=== PATIENT | female | born 1940 | race Caucasian/White ===

== ENCOUNTER 2019-01-07 15:38 | Inpatient (IN) ==
[2019-01-07] MEDS: NS 1,000 ML IV PRN ×2 (16:14→21:20)
[2019-01-07 16:18] LABS: BASO# 0.02 X1000 (0.0-0.2); BASO% 0.3 % (0.0-0.8); EOS# 0.18 X1000 (0.0-0.7); EOS% 2.3 % (0.0-10.0); HEMATOCRIT 39.5 % (37.0-47.0); HEMOGLOBIN 13.5 g/dL (12.0-16.0); LYMPH% 24.5 % (20.5-51.1); MCHC 34.2 g/dL (33-37); MCV 84.8 FL (81-99); MONO# 0.58 X1000 (0.11-0.59); MONO% 7.5 % (1.7-9.3); MPV 9.4 FL (7.4-10.4); NEUT# 5.07 X1000 (1.4-6.5); NEUT% 65.4 % (42.2-75.2); PLT 258 X1000 (130-400); RBC 4.66 XMIL (4.2-5.4); RDW 13.6 % (11.5-14.5); WBC 7.75 X1000 (4.8-10.8)
--- NOTE | 2019-01-07 16:19 | Diag Imaging Result Doc PS360 ---
EXAM: CHEST-PORTABLE - 01/07/2019 HISTORY: stroke like symptoms TECHNIQUE: Portable chest COMPARISON: None. FINDINGS: Heart size appears the upper range of normal. There is some tortuosity of the thoracic aorta. There is mild linear atelectasis or scarring at the left base. Lungs otherwise appear clear. There is no pleural effusion or pneumothorax identified. IMPRESSION: Mild linear atelectasis or scarring at left base. No other evidence of acute disease. Electronically signed by Edward Rolon 01/07/2019 4:16 PM
[2019-01-07 16:37] LABS: INR 1.02; PROTIME 13.5 Seconds (11.0-16.0)
[2019-01-07 16:38] LABS: PTT 34.4 Seconds (22.3-41.8)
[2019-01-07 16:45] LABS: ALB/GLOB RATIO 2.2; ALBUMIN 4.4 g/dL (3.5-5.0); CALCIUM 10.5 mg/dL (8.8-10.2); CREATININE 1.2 mg/dL (0.5-0.9); POTASSIUM 3.5 mmol/L (3.5-5.1); TOTAL BILIRUBIN 0.66 mg/dL (0.20-1.00); TOTAL PROTEIN 6.4 g/dL (6.3-8.3)
[2019-01-07 16:50] LABS: URINE SOURCE CLEAN CATCH
[2019-01-07 16:56] LABS: BILIRUBIN URINE NEGATIVE (NEGATIVE); BLOOD URINE NEGATIVE (NEGATIVE); COLOR YELLOW; GLUCOSE URINE NEGATIVE (NEGATIVE); KETONE URINE NEGATIVE (NEGATIVE); LEUKOCYTES URINE NEGATIVE (NEGATIVE); NITRITE URINE NEGATIVE (NEGATIVE); PROTEIN URINE TRACE mg/dL (NEGATIVE); SP GRAVITY URINE 1.009; TURBIDITY URINE CLEAR (CLEAR); UROBILINOGEN URINE NORMAL (NORMAL)
[2019-01-07 16:57] LABS: UR EPITHELIAL CELLS <10 /HPF (<10); URINE BACTERIA NEGATIVE /HPF; URINE RBC <10 /HPF (<10); URINE WBC <10 /HPF (<10)
[2019-01-07 17:07] LABS: UR AMPHETAMINES QUAL NONE DETECTED (NONE DETECT); UR BARBITUATES QUAL NONE DETECTED (NONE DETECT); UR BENZODIAZEPIN QUAL NONE DETECTED (NONE DETECT); UR CANNABINOIDS QUAL NONE DETECTED (NONE DETECT); UR COCAINE QUAL NONE DETECTED (NONE DETECT); UR METHADONE QUAL NONE DETECTED (NONE DETECT); UR OPIATES QUAL NONE DETECTED (NONE DETECT); UR OXYCODONE QUAL NONE DETECTED (NONE DETECT); UR PCP QUAL NONE DETECTED (NONE DETECT)
--- NOTE | 2019-01-07 18:19 | Diag Imaging Result Doc PS360 ---
EXAM: CT HEAD W/O CONTRAST - 01/07/2019 HISTORY: TIA TECHNIQUE: CT head without contrast COMPARISON: None. FINDINGS: There are mild atrophic changes. There are chronic appearing microvascular ischemic changes. There is no indication of recent infarct, although acute infarcts may not be immediately visible. There is no evidence of intracranial hemorrhage, mass effect, or midline shift. There is no evidence of skull fracture. Visualized portions of paranasal sinuses and mastoid air cells appear clear. IMPRESSION: Mild atrophic changes and chronic microvascular ischemic changes. No visible acute intracranial abnormality. No hemorrhage or mass effect. This exam was performed using automated exposure control, adjustment of mA or kV according to patient size, and/or use of iterative reconstruction technique. Electronically signed by Edward Rolon 01/07/2019 6:17 PM
--- NOTE | 2019-01-07 18:51 | PROVIDER DOCUMENTATION ---
This chart was entered by Jessica Slade Scribe, acting as scribe for Jase Ledbetter MD. HPI-Neurological Disorder - General Chief Complaint: STROKE ALERT Stated Complaint: RETURN/RECHECK SEEN THIS AM Time Seen by Provider: 01/07/19 15:48 Source: patient, family Allergies/Adverse Reactions: Patient Allergies Allergy/AdvReac Type Severity Reaction Status Date / Time Sulfa (Sulfonamide Allergy Severe NAUSEA/VOMI Verified 01/07/19 16:23 Antibiotics) TING [Sulfa(Sulfonamide Antibiotics)] clonidine AdvReac HEADACHE Verified 01/07/19 18:48 Home Medications: Home Medication List Medication Instructions Recorded Confirmed Last Taken Type ATORVAstatin [Lipitor] 10 mg PO DAILY 01/11/12 01/07/19 01/07/19 History Irbesartan 300 mg PO DAILY 01/07/19 01/07/19 01/07/19 History Metoprolol [Lopressor] 25 mg PO BID 01/07/19 01/07/19 01/07/19 History - History of Present Illness-Neuro Nature of Presenting Problem: 79 yowf presents to the ed for a recheck. pt was seen during early am hrs by dr nuñez in ed for HTN. pt sts was dc home around 0500am and laid down and slept till work. pt went to work as normal and sts had a dry mouth and was sent back home. pt drove to the pharmacy picked up her medication and was back in bed around 12 with sx of dry mouth and mild PETERSON. pt woke at 1500 and was going to read her journal when she noticed she could see the words but not read are make sense of the words. pt on exam sts she can read normal again but still has dry mouth. pt is nontoxic in appearance. Headache Location: reports: global Severity: reports: mild Onset/Duration: reports: this afternoon (1500) Timing: reports: improving Context: reports: none Character of Altered Mental Status: reports: N/A Any recent trauma/injury?: reports: none New weakness or altered sensation location:: reports: none Cognitive Baseline: alert, oriented x3 Gait Baseline: walks without assistance Associated Symptoms: reports: headache, other (unable to read). 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 denies: ataxia, dizziness/vertigo, loss of balance, numbness, paresthesia, seizure Psychiatric: reports: no symptoms reported Endocrine: reports: no symptoms reported Hematologic/Lymphatic: reports: no symptoms reported Allergic/Immunologic: reports: no symptoms reported All Other Systems: Reviewed and Negative Past History - Adult - PAST MEDICAL HISTORY-ADULT Review of Records: reports: Old Records Reviewed, Nursing Assessment Review, Medications Reviewed, Social history reviewed & non-contributory. Major Childhood Illnesses: reports: denies history Cardiovascular: reports: arrhythmia, HTN Respiratory: reports: denies history Gastrointestinal: reports: denies history Obstetrical/Gynecological: reports: denies history Genitourinary: reports: denies history Musculoskeletal: reports: denies history Neurological: reports: denies history Psychiatric: reports: denies history Endocrine/Immune: reports: thyroid disorder Other Conditions: reports: denies history - PRIOR SURGERIES/PROCEDURES Surgical/Procedure History: reports: hysterectomy - IMMUNIZATION STATUS Childhood Immunizations: See Nurse Assessment Flu Vaccine: See Nurse Assessment - FAMILY HISTORY Family History: reviewed, not pertinent - SOCIAL HISTORY Smoking: denies Substance Use: denies Living Situation: family Physical Exam- Neurological - Physical Exam-Neuro Initial Vital Signs Reviewed: Yes General Appearance: appears well, alert, no apparent distress (pt sts sx of being unable to read have resolved. pt is nontoxic in appearance) Eye Exam: bilateral eye: normal inspection, PERRL, EOMI HENMT: negative: moist mucous membranes (dry oral) Neck: non-tender, full range of motion, normal inspection Respiratory: chest non-tender, lungs clear, normal breath sounds Cardiovascular: normal peripheral pulses, regular rate, rhythm Abdominal Exam: normal bowel sounds, non tender, soft Lymphatic: no adenopathy Extremity: normal range of motion, non-tender, normal gait, normal inspection etl consultant Exam: normal hearing, normal speech, PERRL. negative: facial droop, facial paresthesias, facial weakness, gaze palsy Coordination/Gait: normal finger to nose, normal gait Motor/Sensory: no motor deficit, no sensory deficit, no pronator drift Neurologic: etl consultant II-XII nml as tested Integumentary: normal color, normal turgor, warm/dry Psych/Mental Status: normal mood/affect, normal thought content, normal thought process, oriented x 3 Progress - PLAN OF CARE/RESULTS Progress/Plan/Lab Results: Vital Signs - 8 hr 01/07/19 15:42 01/07/19 15:52 01/07/19 15:53 Temperature 97.5 F L Pulse Rate 88 97 H Respiratory Rate 20 17 Blood Pressure 172/89 187/89 O2 Sat by Pulse Oximetry 99 01/07/19 16:00 01/07/19 16:02 01/07/19 16:16 Temperature Pulse Rate 88 83 80 Respiratory Rate 23 21 20 Blood Pressure 175/80 156/75 O2 Sat by Pulse Oximetry 100 99 01/07/19 16:31 01/07/19 16:45 01/07/19 16:46 Temperature Pulse Rate 74 68 68 Respiratory Rate 22 16 16 Blood Pressure 141/81 140/62 O2 Sat by Pulse Oximetry 100 100 99 01/07/19 16:55 Temperature Pulse Rate 71 Respiratory Rate 26 H Blood Pressure 142/65 O2 Sat by Pulse Oximetry 100 Laboratory Results - last 24 hr 01/07/19 01/07/19 01/07/19 16:02 16:02 16:02 WBC 7.75 RBC 4.66 Hgb 13.5 Hct 39.5 MCV 84.8 MCH 29.0 MCHC 34.2 RDW Std Deviation 13.6 Plt Count 258 MPV 9.4 Immature Gran % (Auto) 0.0 Neut % (Auto) 65.4 Lymph % (Auto) 24.5 Kimble % (Auto) 7.5 Eos % (Auto) 2.3 Baso % (Auto) 0.3 Immature Gran # (Auto) 0.00 Neut # (Auto) 5.07 Lymph # (Auto) 1.90 Kimble # (Auto) 0.58 Eos # (Auto) 0.18 Baso # (Auto) 0.02 PT 13.5 INR 1.02 PTT (Actin FS) 34.4 Sodium 139 Potassium 3.5 Chloride 100 Carbon Dioxide 23 L Anion Gap 16 BUN 19 Creatinine 1.2 H Estimated GFR/1.73 m2 43 BUN/Creatinine Ratio 16 Glucose 153 H POC Glucose Calculated Osmolality 283 Calcium 10.5 H Total Bilirubin 0.66 AST 16 ALT 18 Alkaline Phosphatase 84 Troponin T Total Protein 6.4 Albumin 4.4 Globulin 2.0 Albumin/Globulin Ratio 2.2 Urine Source Urine Color Urine Turbidity Urine pH Ur Specific [place] Urine Protein Ur Glucose (Stick) Ur Ketones (Stick) Urine Blood Urine Nitrite Urine Bilirubin Urobilinogen Dipstick Urine Leukocytes Urine WBC (Auto) Urine RBC (Auto) U Epithel Cells (Auto) Urine Bacteria (Auto) Urine Opiates Screen Ur Oxycodone Screen Ur Methadone, Qual Ur Barbiturates Screen Ur Phencyclidine Scrn Ur Amphetamines Screen U Benzodiazepines Scrn Urine Cocaine Screen U Cannabinoids Screen 01/07/19 01/07/19 01/07/19 16:02 16:29 16:46 WBC RBC Hgb Hct MCV MCH MCHC RDW Std Deviation Plt Count MPV Immature Gran % (Auto) Neut % (Auto) Lymph % (Auto) [place] % (Auto) Eos % (Auto) Baso % (Auto) Immature Gran # (Auto) Neut # (Auto) Lymph # (Auto) [place] # (Auto) Eos # (Auto) Baso # (Auto) PT INR PTT (Actin FS) Sodium Potassium Chloride Carbon Dioxide Anion Gap BUN Creatinine Estimated GFR/1.73 m2 BUN/Creatinine Ratio Glucose POC Glucose 135 H Calculated Osmolality Calcium Total Bilirubin AST ALT Alkaline Phosphatase Troponin T < 0.010 Total Protein Albumin Globulin Albumin/Globulin Ratio Urine Source CLEAN CATCH Urine Color YELLOW Urine Turbidity CLEAR Urine pH 7.0 Ur Specific [place] 1.009 Urine Protein TRACE A Ur Glucose (Stick) NEGATIVE Ur Ketones (Stick) NEGATIVE Urine Blood NEGATIVE Urine Nitrite NEGATIVE Urine Bilirubin NEGATIVE Urobilinogen Dipstick NORMAL Urine Leukocytes NEGATIVE Urine WBC (Auto) <10 Urine RBC (Auto) <10 U Epithel Cells (Auto) <10 Urine Bacteria (Auto) NEGATIVE Urine Opiates Screen Ur Oxycodone Screen Ur Methadone, Qual Ur Barbiturates Screen Ur Phencyclidine Scrn Ur Amphetamines Screen U Benzodiazepines Scrn Urine Cocaine Screen U Cannabinoids Screen 01/07/19 16:46 WBC RBC Hgb Hct MCV MCH MCHC RDW Std Deviation Plt Count MPV Immature Gran % (Auto) Neut % (Auto) Lymph % (Auto) [place] % (Auto) Eos % (Auto) Baso % (Auto) Immature Gran # (Auto) Neut # (Auto) Lymph # (Auto) [place] # (Auto) Eos # (Auto) Baso # (Auto) PT INR PTT (Actin FS) Sodium Potassium Chloride Carbon Dioxide Anion Gap BUN Creatinine Estimated GFR/1.73 m2 BUN/Creatinine Ratio Glucose POC Glucose Calculated Osmolality Calcium Total Bilirubin AST ALT Alkaline Phosphatase Troponin T Total Protein Albumin Globulin Albumin/Globulin Ratio Urine Source Urine Color Urine Turbidity Urine pH Ur Specific [place] Urine Protein Ur Glucose (Stick) Ur Ketones (Stick) Urine Blood Urine Nitrite Urine Bilirubin Urobilinogen Dipstick Urine Leukocytes Urine WBC (Auto) Urine RBC (Auto) U Epithel Cells (Auto) Urine Bacteria (Auto) Urine Opiates Screen NONE DETECTED Ur Oxycodone Screen NONE DETECTED Ur Methadone, Qual NONE DETECTED Ur Barbiturates Screen NONE DETECTED Ur Phencyclidine Scrn NONE DETECTED Ur Amphetamines Screen NONE DETECTED U Benzodiazepines Scrn NONE DETECTED Urine Cocaine Screen NONE DETECTED U Cannabinoids Screen NONE DETECTED Orders Category Date Time Status Cardiac Monitoring DIRECTED Care 01/07/19 15:56 Active Finger Stick Blood Sugar (ED) DIRECTED Care 01/07/19 15:56 Active Misc. NRSG Communication Order DIRECTED Care 01/07/19 15:56 Active Saline Loc NOW Care 01/07/19 15:56 Active CHEST-PORTABLE [RAD] Stat Exams 01/07/19 15:[address] HEAD W/O CONTRAST [CT] Stat Exams 01/07/19 15:56 Completed CBC WITH ELECTRONIC DIFF [HEME] Stat Lab 01/07/19 16:02 Completed COMPREHENSIVE METABOLIC PANEL [CHEM] Stat Lab 01/07/19 16:02 Completed PROTIME WITH INR [COAG] Stat Lab 01/07/19 16:02 Completed PTT [COAG] Stat Lab 01/07/19 16:02 Completed TROPONIN T Stat Lab 01/07/19 16:02 Completed URINALYSIS W/POSS RFLX CULT [URINALYSIS] Stat Lab 01/07/19 16:46 Completed URINE DRUG SCREEN Stat Lab 01/07/19 16:46 Completed 0.9% Sodium Chloride Inj [Ns] 1,000 ml Med 01/07/19 15:56 Active IV 75 mls/hr EKG [EKG] Stat Ther 01/07/19 15:56 Ordered Result Diagrams: 01/07/19 16:02 01/07/19 16:02 - EKG 1 Time of EKG reading by physician:: 16:08 EKG Read and Signed by:: Jase Ledbetter EKG Interpretation (*Must complete 3 of following elements*): Abnormal Rate: 82 Rhythm: nsr [place]: normal QRS: normal [place] Interval: normal Comments: nonspecific ST abnormality - XRAY 1 XRAY: Bilateral XRAY Study: Chest Impression: See EMR Report (EXAM: CHEST-PORTABLE - 01/07/2019 HISTORY: stroke like symptoms TECHNIQUE: Portable chest COMPARISON: None. FINDINGS: Heart size appears the upper range of normal. There is some tortuosity of the thoracic aorta. There is mild linear atelectasis or scarring at the left base. Lungs otherwise appear clear. There is no pleural effusion or pneumothorax identified. IMPRESSION: Mild linear atelectasis or scarring at left base. No other evidence of acute disease. Electronically signed by Edward Rolon 01/07/2019 4:16 PM 01/07/191615 Interpreting Physician: Edward Rolon MD Dictated Date/Time: 01/07/191615 cc: Jase Ledbetter MD; Terrie Cronin MD) - CT/MRI 1 CT Study: Head Impression: Normal - CONSULTS/PCP/HOSPITALIST Notification #1 *Consult/PCP/Hospitalist*: Hospitalist Time Discussed: 18:15 Consult Disposition: Will see in ED, Admit Departure - Departure Date of Disposition Decision: 01/07/19 Time of Disposition Decision: 18:50 DIAGNOSIS: TIA (transient ischemic attack) Disposition: ADMITTED INPATIENT 09 Certified Medical Emergency: Emergent Condition: Good Referrals and Follow-Ups: Terrie Cronin MD [Primary Care Provider] - - Critical Care Note This patient required my direct & personal management of CC.: No Attestation - Physician/ ILIA Attestation Patient care was provided by Advanced Practice Provider:: No The physician spent face to face time with patient:: Yes Advanced Practice Provider documentation review:: Supervising physician onsite and consulted in the evaluation and care of this patient. The physician did have a face to face encounter with the patient. - NIH Stroke Scale NIH Type: Initial Evaluation Level of Consciousness: 0-Alert LOC Questions (ask month and age): 0-Answers Both Correctly LOC Commands (ask to open & close eyes;make a fist, let go): 0-Obeys Both Correctly Best Gaze (horizontal eye movement): 0-Normal Visual (use finger movement, counting or visual threat): 0-No Visual Loss Facial Palsy (show teeth or raise eyebrows & close eyes tght: 0-Symmetrical Mov ement Motor Function-left arm: 0-Normal Motor Function-right arm: 0-Normal Motor Function-left le-Normal Motor Function-right le-Normal Limb Ataxia(pgnmwr-[id number], or heel to solorzano): 0-No Ataxia Sensory(pin prick to face,arms,trunk,legs-compare side/side): 0-No Ataxia Best Language(name item/read sentence.Ex-Down to Earth): 0-No Aphasia Dysarthria(Pt read words or say words Ex.Mama,Tip-Top,Thanks: 0-Normal Articulation Extinction and Inattention: 0-Normal Modified Allamuchy Score Criteria: 0-no symptoms Stroke tPA Guidelines - Inclusion Criteria for IV tPA 18 years old or older: Yes Ischemic stroke with measurable deficit: No Onset <3 hours ago *OR* 3-4.5 hours ago: Yes - Relative Contraindications to IV tPA Minor or rapidly improving stroke symptoms: Yes This chart was documented by the indicated scribe, (Jessica Slade Scribe) and accurately reflects the services I performed and decisions made by me, Jase Ledbetter MD, as attested by the provider's signature.
--- NOTE | 2019-01-07 21:03 | EKG Report ---
Test Performed on : 01/07/2019 4:08:01 PM Test Reason : Stroke like symptoms Blood Pressure : / mmHG Vent. Rate : 082 BPM Atrial Rate : 082 BPM P-R Int : 156 ms QRS Dur : 086 ms QT Int : 362 ms P-R-T Axes : 061 026 001 degrees QTc Int : 422 ms Normal sinus rhythm. Nonspecific ST abnormality Abnormal ECG When compared with ECG of 07-JAN-2019 01:30, (Unconfirmed) T wave inversion now evident in Inferior leads Unconfirmed Result
[2019-01-07] MEDS ORDERED: ZOFRAN IV PRN (22:21)
[2019-01-08] MEDS: TYLENOL PO PRN ×2 (04:14→18:34)
--- NOTE | 2019-01-08 04:34 | HISTORY AND PHYSICAL ---
PRIMARY CARE PHYSICIAN: Terrie Cronin MD. DATE AND TIME: 01/07/2019 at 2245. CHIEF COMPLAINT: Possible stroke-like symptoms. HISTORY OF PRESENT ILLNESS: Ms. Briscoe is an 79-year-old female who does have a history of hypertension, hyperlipidemia, atrial tachycardia and parathyroid disease. The patient states approximately [address] Cronin did switch her blood pressure medication from Cozaar to Avapro. She reports prior to this switch that her blood pressure was continuously running in the 150s systolically, so Dr. Cronin wanted to try her on a new medicine. The patient did come in to be seen in the ER on 01/07/2019. This was earlier in the morning, at approximately 1 to 2 a.m. According to the ER physician notes, the patient did present to the ER for evaluation of elevated blood pressure. The patient presented to the ER for evaluation of her blood pressure being elevated as well as she was reporting a mild headache, though was noted to be otherwise asymptomatic. Though her initial blood pressure in triage was not elevated, it was 139/85, though she did have a few following readings that were elevated into the 170s and 180s systolically. They did give her clonidine 0.2 mg orally in the ER. Her blood pressure did improve and she was discharged home. The patient states that after leaving the ER that she did go home, she did attempt to go to work, though was sent back home after she arrived due to reporting what had been going on and having some dry mouth. 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 The patient states that when she woke up from her nap, she did try to read and write her in her journal and noticed that she was having trouble making sense of the words. Though she denied any visual disturbances, she denied having any difficulty with speech. She denied any numbness or tingling in extremities or anywhere for that matter. She denied any reported ataxia. She reported that she was not having any difficulty walking either. Given this difficulty with not being able to make sense of the words, she did come to the ER for further evaluation. In the ER, they did perform a CT of the head without contrast, which shows some mild atrophic changes and chronic microvascular ischemic changes. There was no evidence of visible acute intracranial abnormality. Chest x-ray did show some mild linear atelectasis and/or scarring at the left lung base. There was no evidence of acute disease. EKG showed normal sinus rhythm with a nonspecific ST abnormality at a rate of 82 with a QTc of 422. She did not have any leukocytosis noted. Hemoglobin and hematocrit within normal limits. She did have some very mild hypercalcemia with a calcium 10.3 and some mild hyperglycemia, with a glucose of 125. Urinalysis did not show any signs of infection. Urine drug screen was negative. At the time of my examination, the patient reported that she had complete resolution of the difficulty with reading and comprehending words. She was reporting just a mild headache. REVIEW OF SYSTEMS: A 14-point review of systems was conducted with the patient and all were negative, except for pertinent positives mentioned above in HPI. PAST MEDICAL HISTORY: 1. Hypertension. 2. Hyperlipidemia. 3. Gastroesophageal reflux disease. 4. History of parathyroid disease, status post parathyroidectomy. PAST SURGICAL HISTORY: 1. Hysterectomy. 2. Left breast biopsy. 3. Parathyroidectomy. 4. Left knee surgery. SOCIAL HISTORY: The patient has no known history of tobacco, alcohol or illicit drug use. She did have family member present at bedside during our examination. FAMILY HISTORY: Positive for her Father having a history of stroke. Her mother had a history of dementia and coronary artery bypass graft. ALLERGIES: Patient reports allergies to sulfa and now clonidine. HOME MEDICATIONS: 1. Aspirin 81 mg p.o. daily. 2. Lipitor 10 mg p.o. daily. 3. Vitamin D3 5000 units p.o. daily. 4. Irbesartan 300 mg p.o. daily. 5. Metoprolol 25 mg p.o. b.i.d. PHYSICAL EXAMINATION: VITAL SIGNS: Temperature 97.7 degrees, heart rate 65, respiration 18, blood pressure 159/67, oxygen saturation is 100% on room air. GENERAL: Ms. Briscoe is a pleasant 79-year-old female, she was resting in the inpatient bed. She was in no acute distress. She was awake, alert and able to answer questions appropriately. HEENT: Head is atraumatic, normocephalic. Pupils are equal, round, reactive to light, were 3 mm bilaterally and brisk. Oral mucosa was slightly dry. Oropharynx was clear. NECK: Supple trachea midline. The patient did have a very faint carotid bruit noted on the right. CARDIOVASCULAR: Patient has S1, S2 present. No murmurs, gallops, rubs appreciated with a regular rate and rhythm. PULMONARY: Patient has symmetrical chest expansion bilaterally. Lung sounds are clear in all lung aguiar, except she did have some very slight fine crackles noted in her right lung base. ABDOMEN: Soft, nontender, nondistended. Bowel sounds are present in all 4 quadrants, were slightly hypoactive. EXTREMITIES: No cyanosis or edema noted. Pulse, motor, and sensory is intact in all extremities. Radial and pedal pulses were 2+ bilaterally. INTEGUMENTARY: The patient's skin is pink, warm, and dry. NEUROLOGICAL: Patient is alert and oriented to person, place, time and situation. She is able to answer questions appropriately and follow commands. She is denying any numbness or tingling at this time. She has adequate hand grasps and motion bilaterally. She has no arm drift noted. She has no facial droop noted. No focal neurological deficits noted at this time. ASSESSMENT AND PLAN: 1. Possible transient ischemic attack versus possible medication adverse reaction. The patient did receive clonidine prior to being discharged from the ER yesterday morning. After she returned home she did lay down and take a nap and woke up and reported the symptoms of having difficulty comprehending and making sense of her words. She reported just a mild headache at this time, though, she has no other focal neurological deficits noted. For further evaluation, we will perform an echocardiogram in the morning as well as a carotid ultrasound. We will repeat a CBC, BMP in the morning. She is receiving some gentle intravenous hydration with normal saline at 75 mL/h. We have placed a consult with Neurology with Dr. Sears, we will await his evaluation and further recommendations for management as well. We will consider also doing an MRI with and without contrast, though unfortunately, this would not be able to be performed until Wednesday. We will continue to follow the patient's condition closely. 2. History of hypertension. At this time, we will allow for some permissive hypertension given possibility of a TIA. Her last blood pressure was 159/67, heart rate is 65. We will continue to monitor closely. 3. History of atrial tachycardia. The patient does take Coreg for this, 20 mg twice a day, though her heart rate at this time is in this 60s. As previously mentioned, we are going to allow for some permissive hypertension. We will continue to monitor closely, especially her heart rate and we will administer her Coreg if needed. 4. Hyperlipidemia. We have continued her atorvastatin. The patient has been placed on medical floor with telemetry. She will have vital signs and neurological checks q.4 hours. She will be on strict intake and output, incentive spirometry. We will do a heart healthy diet. Further orders and recommendations pending hospital course, diagnostic studies, and physician evaluation. Dictated by SHANTELL Bernstein for Luis Edgar MD cc: Luis Edgar MD Patient presenting with stroke like symptoms. CT brain neg for acute lession. Differentials include TIA, medication effect. I concur with the assessment and plan of the FILTERER. Dr. Edgar. ASYA
[2019-01-08 07:07] LABS: BASO# 0.03 X1000 (0.0-0.2); BASO% 0.6 % (0.0-0.8); EOS# 0.16 X1000 (0.0-0.7); HEMATOCRIT 35.9 % (37.0-47.0); LYMPH# 1.27 X1000 (1.2-3.4); LYMPH% 23.6 % (20.5-51.1); MCH 28.6 PG (27-31); MCHC 33.4 g/dL (33-37); MCV 85.7 FL (81-99); MONO# 0.36 X1000 (0.11-0.59); MONO% 6.7 % (1.7-9.3); MPV 8.8 FL (7.4-10.4); NEUT# 3.57 X1000 (1.4-6.5); NEUT% 66.1 % (42.2-75.2); PLT 208 X1000 (130-400); RBC 4.19 XMIL (4.2-5.4); RDW 13.3 % (11.5-14.5); WBC 5.39 X1000 (4.8-10.8)
[2019-01-08 07:43] LABS: AGAP 8; BUN 15 mg/dL (8-22); CALCIUM 9.4 mg/dL (8.8-10.2); CHLORIDE 105 mmol/L (98-107); COSMO 275; CREATININE 0.7 mg/dL (0.5-0.9); ESTIMATED GFR > 60; GLUCOSE 106 mg/dL (70-104); POTASSIUM 4.2 mmol/L (3.5-5.1); SODIUM 137 mmol/L (136-145); TCO2 24 mmol/L (25-35)
[2019-01-08] MEDS: LIPITOR PO SCH (10:43)
[2019-01-08] MEDS: ASPIRIN EC PO SCH (10:43)
[2019-01-08] MEDS: NS 1,000 ML IV PRN (13:57)
--- NOTE | 2019-01-08 15:39 | PROGRESS NOTE ---
DATE: 01/08/2019 SUBJECTIVE: She has no major complaints. OBJECTIVE: Blood pressure 142/56, heart rate 80, respiratory rate 19, temperature 98.1 degrees. Cardiovascular: Regular rate and rhythm. Pulmonary: Bilateral breath sounds clear to auscultation. GI: Soft, nontender, nondistended. Bowel sounds were positive. Neurological: Was nonfocal. White count 5, hemoglobin and hematocrit 12 and 35, platelets 208,000. Basic was normal. PROBLEM LIST: 1. Transient ischemic attack versus clonidine effect. She did take a dose of clonidine for blood pressure and she woke up with difficulty comprehending and reading out words, which clonidine does have very central effects. In fact, it is used for psychiatric purposes. I do not think this was to be sure fully a transient ischemic attack. Her carotid is negative. Her echocardiogram is pending. I had a long discussion with her about considering doing this as an outpatient, the MRI, but we will pursue MRI tomorrow and if it is negative, she can go home. 2. Atrial tachycardia. She is currently stable. No major issues. Her blood pressure has been uncontrolled as an outpatient. I would consider the addition of Norvasc next. I think that would be it. 3. Hyperparathyroidism. This could have also caused some issues. Her calcium level was minimally elevated but has come down with hydration. We will continue to monitor that. She had a little bit of renal insufficiency as well. Since she has got some blood pressure issues, may consider doing some renal artery Doppler studies tomorrow to make sure there is no issues with her kidneys. cc: Karthik Izaguirre MD
[2019-01-08] MEDS: AVAPRO PO SCH (15:54)
[2019-01-08] MEDS: LOPRESSOR PO SCH ×2 (15:54→20:02)
[2019-01-09] MEDS: NS 1,000 ML IV PRN (03:19)
[2019-01-09 08:31] LABS: AGAP 12; BUN 12 mg/dL (8-22); CALCIUM 10.5 mg/dL (8.8-10.2); CHLORIDE 106 mmol/L (98-107); COSMO 283; CREATININE 0.7 mg/dL (0.5-0.9); ESTIMATED GFR > 60; GLUCOSE 107 mg/dL (70-104); POTASSIUM 4.2 mmol/L (3.5-5.1); SODIUM 142 mmol/L (136-145); TCO2 24 mmol/L (25-35)
--- NOTE | 2019-01-09 08:32 | ECHO REPORT ---
ORDER DATE: 01/08/2019 INTERPRETING PHYSICIAN: Dr. Holcomb REQUESTING PHYSICIAN: CLINICAL INDICATIONS: This is an 79-year-old female with possible TIA, hypertension. M-MODE MEASUREMENTS: Right ventricle: cm. Left ventricle end diastole: 4.7 cm. Left ventricle end systole: 2.6 cm. Posterior wall: 1.9 cm. Interventricular septum: 1.9 cm. Left atrium: 3.1 cm. Aortic root: 3.2 cm. SUMMARY OF 2-DIMENSIONAL IMAGIN. Left ventricular function is normal. Ejection fraction is 65%. There is no wall motion abnormality. 2. The aortic valve looks normal. Color flow mapping indicates mild degree of regurgitation. 3. The mitral valve looks normal with mild degree of regurgitation. 4. Pulse wave Doppler of mitral inflow shows normal E/A ratio. The ratio is 1.3. 5. Tissue Doppler of septal and lateral mitral annulus averages 13 cm. 6. There is no diastolic dysfunction. 7. Pulmonic valve shows mild degree of regurgitation. 8. Tricuspid valve shows a mild to moderate degree of regurgitation. 9. The pulmonary pressure is estimated at 38 mmHg. 10.There is no pericardial effusion, mass or thrombus. 11.The pulmonary venous flow is normal. 12.The atria did not appear to be dilated. Clinical correlation is recommended. cc: Victor Hugo Holcomb MD
[2019-01-09 08:40] VITALS: BP 154/60
[2019-01-09] MEDS: ASPIRIN EC PO SCH (09:23)
[2019-01-09] MEDS: LIPITOR PO SCH (09:23)
[2019-01-09] MEDS: AVAPRO PO SCH (09:23)
[2019-01-09] MEDS: LOPRESSOR PO SCH (09:23)
--- NOTE | 2019-01-09 10:09 | PROGRESS NOTE ---
DATE: 01/09/2019 SUBJECTIVE: Patient resting in bed, not in any obvious distress. OBJECTIVE: Vital Signs: Temperature 98.4 degrees, pulse 75, respirations 14, blood pressure is 154/68, oxygen saturation is 100%. HEENT: Atraumatic, normocephalic. Cardiovascular: S1, S2. Respiratory: Has evidence of good air entry bilaterally. Abdomen: Soft, nontender. No masses felt. Extremities: No evidence of edema. Central Nervous System: No obvious focal deficits noted. LABORATORY DATA: Sodium is 142, potassium is 4.2, chloride is 106, bicarb 24, BUN is 12, creatinine 0.7, calcium level is 10.5. TSH 6.65. Urine drug screen is negative. ASSESSMENT AND PLAN: 1. Transient ischemic attack versus clonidine effect. Will continue the patient on antiplatelet agent as well as statin. MRI of the brain currently pending. 2. Atrial tachycardia. Heart rate is controlled. 3. History of hyperparathyroidism, status post parathyroidectomy. Calcium level elevated at 10.5. Continue intravenous fluids. The patient will need to follow up with Endocrinology in the outpatient. 4. Hyperlipidemia. Continue lipid-lowering agent. 5. Deep vein thrombosis prophylaxis. Sequential compression devices. cc: Luis Edgar MD
--- NOTE | 2019-01-09 14:22 | Diag Imaging Result Doc PS360 ---
MRI BRAIN W/O CONTRAST - 01/09/2019 INDICATION: Poss. TIA COMPARISON: Head CT 01/07/2019 FINDINGS: There is no area of restricted diffusion. The ventricles and sulci are normal in size and contour. There are extensive periventricular and deep cerebral white matter hyperintensities compatible with gliosis due to chronic microvascular ischemia. No intracranial mass or hemorrhage. Midline structures are unremarkable. IMPRESSION: Moderate chronic vascular ischemia. No acute process. Electronically signed by Ar Joe 01/09/2019 2:19 PM
--- NOTE | 2019-01-09 14:23 | Diag Imaging Result Doc PS360 ---
MRA BRAIN W/O CONTRAST - 01/09/2019 INDICATION: TIA TECHNIQUE: Noncontrast time of flight technique was used COMPARISON: None FINDINGS: The intracranial arteries are all normal in caliber. No aneurysm or stenosis. Anatomy is conventional. IMPRESSION: Negative exam. Electronically signed by Ar Joe 01/09/2019 2:21 PM
--- NOTE | 2019-01-09 18:00 | CONSULTATION ---
DATE OF CONSULTATION: 01/09/2019 REASON FOR CONSULT: Question of TIA. HISTORY OF PRESENT ILLNESS: This is an 79-year-old, right-handed, female with history of hypertension and hyperlipidemia, who was admitted early yesterday with symptoms concerning for TIA. History is from the patient. She reports last week having a blood pressure medication change with her primary care physician. She subsequently came into the emergency department 2 days ago, on 01/07/2019 with complaints of elevated blood pressure. She was monitored before being discharged after a dose of clonidine. After about 5 hours of sleep she went in to work but complained of a dry mouth. She came back home and napped from noon to 3 p.m. She awoke, sat up in bed, reached over to get her journal, and realized that she was unable to read the sentences. She described this as trying to read 1 word at a time and none of it was making sense. She did this for only a few seconds before becoming worried and calling out for her grandson. She was able to speak normally to her grandson and she was able to understand what he was saying to her. Within 5 minutes she tried a 2nd time to read the writing and was able to do so without any difficulty. She denies any accompanying neurologic symptoms such as focal weakness or numbness. No paresthesias. No visual disturbance. No slurred speech, dizziness, or syncope. No headache, chest pain, or shortness of breath. The patient has never had similar symptoms. She has no personal history of stroke, seizure, or major neurologic event. Blood pressure was 172/[address] did not show acute findings. She reports feeling gradually better during her time here. She has had improved dry mouth symptoms and feels generally better. PAST MEDICAL HISTORY: Hypertension, hyperlipidemia, GERD, atrial tachycardia, history of hyperparathyroidism status post parathyroidectomy. FAMILY HISTORY: Positive for heart disease. SOCIAL HISTORY: No tobacco, alcohol, or illicits. She continues to work and has a part-time job. ALLERGIES: Listed to sulfa and clonidine has been added. REVIEW OF SYSTEMS: Balance of 12 conducted and is otherwise negative except that detailed in the HPI. PHYSICAL EXAMINATION: Vital Signs: Afebrile. Blood pressure currently 154/68, pulse 75, respirations 14, 100% on room air. Neurologic: Ms. Briscoe is sitting up in bed, awake, alert, fully oriented. Speech is fluent. Attention and concentration are intact. No language disturbance. No dysarthria. Pupils are equal, round, and reactive to bright light. Gaze conjugate. Extraocular movements intact. Visual aguiar intact to direct confrontational testing. Face symmetric with equal activation. Facial sensation intact. Tongue is midline. Palate elevates symmetrically. Shoulder shrug is full. No pronator drift. Tone equal in the limbs. Power is preserved in the limbs and symmetric. Sensation was reported intact to light touch and prick in the limbs. [id number], rapid alternating movements intact. Reflexes trace at the ankles. No clonus. Plantar response is downgoing, 1+ at the knees and biceps bilaterally. DIAGNOSTICS: Head CT, noncontrast: No acute findings. Mild atrophy noted. There is also some mild chronic microvascular ischemic changes noted. Echocardiogram with no effusion, mass, or thrombus. EF of 65%. No wall motion abnormality. Atria did not appear to be dilated. LABS: Reviewed in the chart. ASSESSMENT AND PLAN: Isolated transient difficulty reading. Symptoms were quite brief as detailed above. She reports being able to converse with and understand her grandson during this time. Neurologic exam is normal today and initial head CT did not show acute findings. The etiology is uncertain. I agree with the possibility of clonidine effect versus TIA. Stroke workup is underway including carotid Dopplers with official report pending and MRI of the brain. I have add an MRA of the brain as well. I agree with risk factor modification as you are doing. She should continue aspirin daily. Thank you for the consult. cc: Beatriz Ramos MD
--- NOTE | 2019-01-10 14:26 | DISCHARGE SUMMARY ---
ADMISSION DATE: 01/07/2019 DISCHARGE DATE: 01/09/2019 PRINCIPAL DIAGNOSIS: Probable transient ischemic attack. SECONDARY DIAGNOSES: 1. Hypertension. 2. Hyperlipidemia. 3. Gastroesophageal reflux disease. 4. History of parathyroid disease, status post parathyroidectomy. DISCHARGE MEDICATIONS: Include the following: Aspirin 81 mg p.o. daily, atorvastatin 10 mg p.o. daily, irbesartan 300 mg p.o. once a day, metoprolol 25 mg p.o. twice a day, vitamin D 5000 units p.o. daily, acetaminophen 650 mg every 6 hours p.r.n. CONSULTATIONS DONE DURING THIS HOSPITAL STAY: Dr. Jeffrey, neurology. PROCEDURES DONE DURING THIS HOSPITAL STAY: Chest x-ray on 01/07/2019. CT scan of the brain on 01/07/2019. A 2D echocardiogram of the heart on 01/08/2019. MRI of the brain on 01/09/2019. MRA of the brain on 01/09/2019. HOSPITAL COURSE: Ms. Cher Briscoe is an 79-year-old female who has a history of hypertension, hyperlipidemia, atrial tachycardia, as well as parathyroid disease. She was admitted to the hospital because of possible stroke-like symptoms. A CT scan of the brain was unremarkable for any acute changes. MRI of the brain was also unremarkable for any acute changes. A 2D echocardiogram of the heart showed normal LV function. The patient was also thought to have possibly had an adverse reaction to clonidine and this was discontinued. At this time, the patient has done well. She is stable. She can now be discharged home. PHYSICAL EXAMINATION: During my evaluation today, her vital signs are as follows: Temperature 98.4 degrees, pulse 75, respirations 14, blood pressure is 154/68, oxygen saturation 100%. HEENT: Atraumatic and normocephalic. Cardiovascular System: S1, S2. Respiratory System: Has evidence of good air entry bilaterally. Abdomen: Soft, nontender. No masses felt. Extremities: No evidence of edema. Central Nervous System: No obvious focal deficits noted. LABORATORY DATA: Sodium 142, potassium 4.2, chloride is 106, bicarb 24, BUN is 12, creatinine 0.7, calcium 10.5, TSH 6.65. Urine drug screen negative. PLAN: The patient can be discharged home today. She will need to follow up with her primary care physician and also follow up with endocrinology with regards to parathyroid disease in the outpatient. She is also noted to have a raised TSH level as well. cc: Luis Edgar MD
--- NOTE | 2019-01-10 19:12 | Carotid Study ---
DATE: 01/08/2019 REQUESTING PROVIDER: Gume. SPRING FORMER MACHINE: Pradip. INDICATION: TIA. EQUIPMENT: GE Vivid E9 ultrasound system a 9 L-D transducer. FINDINGS: Complete diagram ultrasound image can be seen scanned in patient's medical record. The peak systolic velocity noted on the right side in the mid internal carotid artery is noted to be 66. The peak systolic velocity left side noted in the distal internal is noted to be 62. The calculated internal the common ratio on the right is 0.56 and left 0.63. The calculated stenosis on right is 0 to 39 percent, left 0 to 39 percent. There appears to be some atherosclerosis both vertebral arteries were antegrade flow. There is some heterogeneity noted to the right thyroid lobe which is incompletely visualized on this study. INTERPRETATION: No hemodynamically significant flow-limiting stenosis noted to bilateral carotid arteries by strict velocity criteria. There is some heterogeneity noted to the right thyroid lobe. I would recommend getting a dedicated thyroid ultrasound. cc: Alhaji Larson MD
== END 2019-01-09 16:13 | disposition home or self-care (01) | DRG 69 ==
LOC: ED 15:38 → SUATTDRO 21:00 → 3N 21:00
PROVIDERS: ATTEND Internal Medicine